=== PATIENT | female | born 1990 | race Caucasian/White ===

== ENCOUNTER 2022-12-12 12:39 | Emergency (ER) | payer BC ==
[2022-12-12 12:57] VITALS: TEMP 98.3; BMI 26.6
[2022-12-12] MEDS ORDERED: ACETAMINOPHEN 1000 MG/100 ML BAG IVPB ONE (13:05)
[2022-12-12] MEDS ORDERED: SODIUM CHLORIDE 1,000 ML IV STA ×2 (13:05→15:00)
[2022-12-12] MEDS ORDERED: ACETAMINOPHEN INJECTION 100 ML IVPB ONE (13:09)
[2022-12-12] MEDS ORDERED: METHOCARBAMOL 500 MG TABLET PO ONE (13:19)
[2022-12-12] MEDS ORDERED: METHOCARBAMOL 500 MG TABLET ONE (13:42)
[2022-12-12 13:55] LABS: BASO % 0.5 % (0-2.0); EOS % 2.1 % (0-4.5); HEMOGLOBIN 13.7 GM/dL (10.7-15.3); LYMPH % 20.4 % (8-40); MCH 32.5 pg (25.7-33.7); MCHC 34.3 g/dl (32.0-36.0); MEAN PLT VOLUME 8.8 fl (7.5-11.1); MONO % 10.3 % (3.8-10.2); NEUT % 66.7 % (42.8-82.8); PLATELET COUNT 192 10^3/uL (134-434); RBC 4.21 M/mm3 (3.60-5.2); RDW 13.3 % (11.6-15.6); WHITE BLOOD COUNT 10.7 K/mm3 (4.0-10.0)
[2022-12-12 13:58] LABS: EPI CELLS 3 /uL (0-25.1); HCG,QUALITATIVE URINE Negative; HYALINE CASTS 0 /uL (0-3.1); URINE APPEARANCE CLEAR; URINE BACTERIA 16 /uL (0-1359); URINE BILIRUBIN NEGATIVE (NEGATIVE); URINE COLOR YELLOW; URINE GLUCOSE (UA) NEGATIVE (NEGATIVE); URINE KETONE NEGATIVE (NEGATIVE); URINE LEUK ESTERASE NEGATIVE (NEGATIVE); URINE NITRITE NEGATIVE (NEGATIVE); URINE PROTEIN NEGATIVE (NEGATIVE); URINE RBC 29 /uL (0-23.9); URINE UROBILINOGEN 0.2 mg/dL (0.2-1.0); URINE WBC 2 /uL (0-25.8)
[2022-12-12 14:17] LABS: ALBUMIN 3.9 g/dl (3.4-5.0)
[2022-12-12 14:18] LABS: BLOOD UREA NITROGEN 14.6 mg/dL (7-18)
[2022-12-12 14:21] LABS: CREATININE 0.9 mg/dL (0.55-1.3)
[2022-12-12 14:22] LABS: BILIRUBIN,TOTAL 0.6 mg/dL (0.2-1); TOT PROT 6.5 g/dl (6.4-8.2)
[2022-12-12] MEDS ORDERED: KETOROLAC TROMETHAMINE 30 MG/1 ML VIAL IM ONE (15:00)
[2022-12-12] MEDS ORDERED: KETOROLAC TROMETHAMINE 30 MG/1 ML VIAL ONE (15:43)
[2022-12-12 17:06] VITALS: BP 112/80; PULSE 86; RESP 18
== END 2022-12-12 17:06 | disposition home or self-care (01) ==
LOC: JERFT 12:39
PROC: 3E023GC Introduction of Other Therapeutic Substance into Muscle, Percutaneous Approach (ICD-10-PCS; principal; 2022-12-12)
PROC: 3E033GC Introduction of Other Therapeutic Substance into Peripheral Vein, Percutaneous Approach (ICD-10-PCS; principal; 2022-12-12)
DX: M62.830 Muscle spasm of back (principal)
CPT/HCPCS: 36415; 72131-TC; 74177-TC; 80053; 81003; 84703; 85025; 87086; 99285-25; Q9967